=== PATIENT | male | born 1975 | race Caucasian/White ===

== ENCOUNTER 2017-10-26 09:01 | Emergency (ER) | payer BC, OTHER ==
--- NOTE | 2017-10-26 10:04 | EDM.PDOC ---
ED HPI GENERAL MEDICAL PROBLEM - General Chief Complaint: Abdominal Pain Stated Complaint: STOMACH PAIN [phone] Time Seen by Provider: 10/26/17 09:45 Source of Information: Reports: Patient History Limitations: Reports: No Limitations - History of Present Illness INITIAL COMMENTS - FREE TEXT/NARRATIVE: This 42 yo male patient reports to the ED from the [facility] (Dr. Glaser) due to diffuse abdominal pain this morning. The patient reports he was very nauseated this morning, attempted to drink some water and vomited. The patient reports diffuse abdominal pain at this time. Dr. Glaser reports that he attempted to assess the patient's abdomen, but stopped due to the patient's increased pain with any palpation. The patient has a history of kidney disease, but his kidneys have been doing very well lately. Onset: Today Duration: Constant, Getting Worse Location: Reports: Abdomen Quality: Reports: Ache, Sharp, Stabbing Severity: Severe Improves with: Reports: None Worsens with: Reports: None Context: Reports: Other Associated Symptoms: Reports: No Other Symptoms Abdominal Pain Score (Numeric/FACES): 10 - Related Data Allergies Allergy/AdvReac Type Severity Reaction Status Date / Time No Known Allergies Allergy Verified 10/26/17 09:10 Home Meds: Home Meds Lisinopril 5 mg PO DAILY 10/02/13 [History] Adalimumab [Humira] 40 mg SQ WEEKLY 10/26/17 [History] Allopurinol [Zyloprim] 300 mg PO DAILY 10/26/17 [History] Past Medical History Genitourinary History: Reports: Other (See Below) Other Genitourinary History: kidney disease Musculoskeletal History: Reports: RA - Past Surgical History Musculoskeletal Surgical History: Reports: Other (See Below) Other Musculoskeletal Surgeries/Procedures:: reattached finger on left hand- pointer, ring, and middle Social & Family History - Family History Family Medical History: Noncontributory - Tobacco Use Smoking Status *Q: Never Smoker Second Hand Smoke Exposure: No - Caffeine Use Caffeine Use: Reports: None - Recreational Drug Use Recreational Drug Use: No ED ROS GENERAL - Review of Systems Review Of Systems: ROS reveals no pertinent complaints other than HPI. ED EXAM, GI/ABD - Physical Exam Exam: See Below Exam Limited By: No Limitations General Appearance: Alert, WD/WN, Severe Distress Eyes: Bilateral: EOMI, Erythema Ears: Normal External Exam, Normal Canal, Hearing Grossly Normal, Normal TMs Nose: Normal Inspection, Normal Mucosa, No Blood Throat/Mouth: Normal Inspection, Normal Lips, Normal Teeth, Normal Gums, Normal Oropharynx, Normal Voice, No Airway Compromise Head: Atraumatic, Normocephalic Neck: Normal Inspection, Supple, Non-Tender, Full Range of Motion Respiratory/Chest: No Respiratory Distress, Lungs Clear, Normal Breath Sounds, No Accessory Muscle Use, Chest Non-Tender Cardiovascular: Normal Peripheral Pulses, Regular Rate, Rhythm, No Edema, No Gallop, No JVD, No Murmur, No Rub GI/Abdominal Exam: Normal Bowel Sounds, Guarding, Rigid, Tender (Male) Exam: Deferred Rectal (Males) Exam: Deferred Back Exam: Normal Inspection, Full Range of Motion, NT Extremities: Normal Inspection, Normal Range of Motion, Non-Tender, Normal Capillary Refill, No Pedal Edema Neurological: Alert, CN II-XII Intact, Normal Cognition Psychiatric: Normal Affect, Normal Mood Skin Exam: Warm, Dry, Intact, Normal Color, No Rash Lymphatic: No Adenopathy Course - Vital Signs Last Recorded V/S: Last Vital Signs Temp 36.3 C 10/26/17 11:49 Pulse 44 L 10/26/17 11:49 Resp 15 10/26/17 11:49 BP 107/61 10/26/17 11:49 Pulse Ox 100 10/26/17 11:49 - Orders/Labs/Meds Orders: Active Orders 24 hr Category Date Time Status UA W/MICROSCOPIC [URIN] Stat Lab 10/26/17 09:30 Ordered Lactated Ringers [Ringers, Lactated] 1,000 ml Med 10/26/17 11:45 Active IV ASDIRECTED Medication Orders Lactated Ringer's (Ringers, Lactated) 1,000 mls @ 250 mls/hr IV ASDIRECTED IVÁN Last Admin: 10/26/17 11:43 Dose: 250 mls/hr Labs: Laboratory Tests 10/26/17 10/26/17 10/26/17 Range/Units 09:17 09:17 09:17 WBC 14.1 H (5.0-10.0) 10^3/uL RBC 5.42 (4.6-6.2) 10^6/uL Hgb 16.4 (14.0-18.0) g/dL Hct 47.8 (40.0-54.0) % MCV 88.2 (80-100) fL MCH 30.3 (27.0-34.0) pg MCHC 34.3 (33.0-35.0) g/dL Plt Count 277 D (150-450) 10^3/uL Neut % (Auto) 76.2 H (42.2-75.2) % Lymph % (Auto) 11.7 L (20.5-50.1) % [place] % (Auto) 11.7 H (2-8) % Eos % (Auto) 0.2 L (1.0-3.0) % Baso % (Auto) 0.2 (0.0-1.0) % Sodium 136 (135-145) mmol/L Potassium 4.2 (3.6-5.0) mmol/L Chloride 100 L (101-111) mmol/L Carbon Dioxide 25.0 (21.0-31.0) mmol/L Anion Gap 15.2 BUN 18 (7-18) mg/dL Creatinine 0.8 (0.6-1.3) mg/dL Est Cr Clr Drug Dosing 118.75 mL/min Estimated GFR (MDRD) > 60 BUN/Creatinine Ratio 22.50 Glucose 113 H (74-105) mg/dL Calcium 9.8 (8.4-10.2) mg/dl Total Bilirubin 1.2 H (0.2-1.0) mg/dL AST 210 H (10-42) IU/L ALT 159 H (10-60) IU/L Alkaline Phosphatase 93 (42-121) IU/L Total Protein 7.8 (6.7-8.2) g/dl Albumin 4.6 (3.2-5.5) g/dl Globulin 3.2 Albumin/Globulin Ratio 1.44 Amylase 2853 H (28-100) U/L Lipase > 400 H (22-51) U/L Meds: Medications Generic Name Dose Route Start Last Admin Trade Name Freq PRN Reason Stop Dose Admin Lactated Ringer's 1,000 mls @ 250 mls/hr 10/26/17 11:45 10/26/17 11:43 Ringers, Lactated IV 250 mls/hr ASDIRECTED IVÁN Administration Discontinued Medications Generic Name Dose Route Start Last Admin Trade Name Freq PRN Reason Stop Dose Admin Sodium Chloride 1,000 mls @ 999 mls/hr 10/26/17 10:24 10/26/17 10:27 Normal Saline IV 10/26/17 11:24 999 mls/hr .BOLUS ONE Administration Iopamidol 50 ml 10/26/17 10:16 10/26/17 10:50 Isovue-300 (61%) IVPUSH 10/26/17 10:17 50 ml ONETIME ONE Administration Departure - Departure Time of Disposition: 11:56 Disposition: DC/Tfer to Acute Hospital 02 Condition: Poor Clinical Impression: Pancreatitis Qualifiers: Chronicity: acute Pancreatitis type: unspecified pancreatitis type Acute pancreatitis complication: unspecified Qualified Code(s): K85.90 - Acute pancreatitis without necrosis or infection, unspecified - Discharge Information *PRESCRIPTION DRUG MONITORING PROGRAM REVIEWED*: Not Applicable *COPY OF PRESCRIPTION DRUG MONITORING REPORT IN PATIENT ROSI: Not Applicable Referrals: Cem Perez MD [Primary Care Provider] - Forms: Interfacility Transfer EMTALA Care Plan Goals: Discussed the history, examination, lab and CT results with Dr. Gonzalez ([facility] in [place]). Dr. Gonzalez accepted the patient for continued evaluation and further treatment. The patient will be transported by [facility]. - My Orders Last 24 Hours: My Active Orders 10/26/17 09:30 UA W/MICROSCOPIC [URIN] Stat 10/26/17 11:45 Lactated Ringers [Ringers, Lactated] 1,000 ml IV ASDIRECTED - Assessment/Plan Last 24 Hours: My Active Orders 10/26/17 09:30 UA W/MICROSCOPIC [URIN] Stat 10/26/17 11:45 Lactated Ringers [Ringers, Lactated] 1,000 ml IV ASDIRECTED
[2017-10-26 10:11] LABS: ANION GAP 15.2; CHLORIDE,CL 100 mmol/L (101-111); SODIUM,NA 136 mmol/L (135-145)
[2017-10-26] MEDS ORDERED: Iopamidol 612 MG/ML 50 ML SDV IVPUSH ONE (10:16)
[2017-10-26] MEDS ORDERED: Sodium Chloride 0.9% 1,000 ML IV ONE (10:24)
--- NOTE | 2017-10-26 11:24 | CT ---
Clinical history: 42-year-old 165 pound male with diffuse abdominal pain; history of "kidney disease" (IgA) but serum creatinine 0.8; now diffuse abdominal pain with white blood cell count 14,100, serum amylase 2800 and lipase greater than 400. Scan technique: Volume acquisition of data abdomen and pelvis obtained on an emergency basis while natalya macedo was lying supine on the Siemens multi slice scanner [facility]. All data archived in the PAC system for storage, reformatting and study. Interpretation: Markedly Abnormal. Interpretation: 1. Intraperitoneal ascitic fluid concentrated in the dependent mid epigastrium "bathing" the edematou s but anatomically normal appearing pancreas (no pancreatic calcifications, discrete cystic/solid garrison creatic mass lesion or pancreatic duct dilatation). 2. Several diverticula scattered in the proximal transverse colon. No sign of pericolonic abscess or free intraperitoneal air. 3. Gallbladder, liver, stomach, spleen and adrenal glands unremarkable. Lung bases clear. No pericard ial or pleural effusions. 4. Normal reniform size, axis and configuration. No renal cortical mass lesion, nephrolithiasis or obstructive uropathy. Symmetrically distended victorino l appearing urinary bladder. 5. Normal caliber aortoiliac vessels. Lumbar spine unremarkable. 6. No pelvic or abdominal mass lesion. No mesenteric or retroperitoneal periaortic lymphadenopathy. N o ventral wall/inguinal hernias or signs of mechanical bowel obstruction. CONCLUSION: Abnormal peripancreatic inflammatory process, midepigastrium.
[2017-10-26] MEDS ORDERED: Lactated Ringers 1,000 ML IV SCH (11:45)
== END 2017-10-26 12:15 ==
LOC: DL.ED 09:01
DX: K85.90 Acute pancreatitis without necrosis or infection, unspecified (principal); Z79.899 Other long term (current) drug therapy
CPT/HCPCS: 36415; 74177; 80053; 82150; 83690; 85025; 96361; 96365; 99285; J7030; J7120; Q9967